=== PATIENT | female | born 1980 | race Caucasian/White ===

== ENCOUNTER 2021-07-05 18:07 | Emergency (ER) | payer OTHER, SELFPAY ==
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
[2021-07-05 18:16] VITALS: BP 137/93; PULSE 86; RESP 16; TEMP 36.7; O2SAT 100
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
--- NOTE | 2021-07-05 18:24 | PC.NURSE ---
PT DECLINED ICE AND WHEELCHAIR
== END 2021-07-05 18:49 | disposition home or self-care (01) ==
PROVIDERS: Emergency Provider Nurse Practitioner Family; PCP Internal Medicine
DX: S90.31XA Contusion of right foot, initial encounter (principal); Y35.811A Legal intervention involving manhandling, law enforcement official injured, initial encounter; Y99.0 Civilian activity done for income or pay
CPT/HCPCS: 73630; 99213; G0463